=== PATIENT | male | born 1955 | race African-American/Black ===

== ENCOUNTER 2016-06-04 06:40 | Emergency (ER) | payer MEDICAID, OTHER ==
[~2016-06-04] VITALS: Ht 177.8 cm; Wt 71.1 kg
[2016-06-04] MEDS ORDERED: ATENOLOL 50 MG TABLET PO STA (06:46)
[2016-06-04] MEDS ORDERED: METOPROLOL TARTRATE 50 MG TABLET ONE (06:54)
[2016-06-04 07:29] LABS: BLOOD UREA NITROGEN 10 mg/dL (7-18)
[2016-06-04 07:34] LABS: IS PT STATUS REG ER OR PRE ER? YES
[2016-06-04 07:36] LABS: HEMOGLOBIN 13.9 g/dL (13.7-18.0)
[2016-06-04] MEDS ORDERED: LISINOPRIL 20 MG TABLET ONE (08:44)
[2016-06-04] MEDS ORDERED: LISINOPRIL 20 MG TABLET PO ONE (09:00)
[2016-06-04 09:26] VITALS: BP 152/98
== END 2016-06-04 10:07 | disposition home or self-care (01) ==
LOC: ED 06:46
DX: I10 Essential (primary) hypertension (principal); F17.200 Nicotine dependence, unspecified, uncomplicated
CPT/HCPCS: 36415; 70450; 71010; 80048; 82040; 83880; 84484; 85025; 93005

== ENCOUNTER 2016-09-09 19:22 | Inpatient (IN) | payer SELFPAY ==
[~2016-09-09] VITALS: Ht 177.8 cm; Wt 74.6 kg
[2016-09-09] MEDS ORDERED: SODIUM CHLORIDE 0.9% 1,000 ML IV ONE (20:36)
[2016-09-09] MEDS ORDERED: ONDANSETRON 2MG/ML, 2ML ONE (20:46)
[2016-09-09] MEDS ORDERED: MORPHINE SULFATE 4 MG/ML, 1ML ONE ×2 (20:46→21:32)
[2016-09-09] MEDS ORDERED: LABETALOL 5MG/ML, 20ML ONE (20:50)
[2016-09-09] MEDS ORDERED: BP MEDICATION (20:55)
[2016-09-09] MEDS: LABETALOL 5MG/ML, 20ML IVPush PRN ×4 (20:58→21:46)
[2016-09-09] MEDS ORDERED: ONDANSETRON 2MG/ML, 2ML IVPush ONE (21:00)
[2016-09-09] MEDS ORDERED: SODIUM CHLORIDE 0.9% 1,000ML IVBOLUS ONE (21:00)
[2016-09-09] MEDS ORDERED: MORPHINE SULFATE 4 MG/ML, 1ML IVPush PRN ×2 (21:00→22:00)
[2016-09-09] MEDS ORDERED: SODIUM CHLORIDE FLUSH 10ML SYR IVF ONE (21:00)
[2016-09-09 21:02] LABS: ASPARTATE AMINO TRANSFERASE 62 U/L (15-37); BLOOD UREA NITROGEN 19 mg/dL (7-18)
[2016-09-09] MEDS ORDERED: BENA40TA2 PO (21:20)
[2016-09-09] MEDS: NICOTINE 14MG/24 HR PATCH.TD24 TD SCH (22:00)
[2016-09-09] MEDS ORDERED: ONDANSETRON 2MG/ML, 2ML IVPush PRN ×2 (22:00)
[2016-09-09] MEDS ORDERED: DOCUSATE 100 MG CAPSULE PO PRN (22:00)
[2016-09-09] MEDS ORDERED: SODIUM CHLORIDE FLUSH 10ML SYR IVF PRN (22:00)
[2016-09-09] MEDS ORDERED: POLYETHYLENE GLYCOL 17 GM PACKET PO PRN (22:00)
[2016-09-09 22:30] VITALS: BP 179/114
[2016-09-09] MEDS: OXYcodone IR 5MG TABLET PO PRN (22:50)
[2016-09-09] MEDS: morphine SULFATE 10 MG/ML, 1ML IVPush PRN (22:51)
[2016-09-10] MEDS: morphine SULFATE 10 MG/ML, 1ML IVPush PRN ×2 (01:50→05:17)
[2016-09-10] MEDS: OXYcodone IR 5MG TABLET PO PRN ×5 (02:40→19:48)
[2016-09-10 04:00] VITALS: BP 144/88
[2016-09-10 04:57] LABS: BLOOD UREA NITROGEN 15 mg/dL (7-18)
[2016-09-10] MEDS: BENAZEPRIL 20 MG TABLET PO SCH (07:56)
[2016-09-10] MEDS: ACETAMINOPHEN 325 MG TABLET PO PRN ×2 (07:57→21:11)
[2016-09-10] MEDS: DILTIAZEM 120 MG CAP.ER.12H PO SCH ×2 (07:57→20:17)
[2016-09-10] MEDS: PANTOPRAZOLE 40 MG IV IVPush SCH (07:57)
[2016-09-10] MEDS: SENNA/DOCUSATE TABLET PO SCH (07:57)
[2016-09-10] MEDS: SODIUM CHLORIDE FLUSH 10ML SYR IVF SCH ×2 (07:57→20:17)
[2016-09-10] MEDS: HYDROmorphone 2 MG/ML, 1ML IVPush PRN ×5 (08:11→21:48)
[2016-09-10] MEDS: ENALAPRILAT 1.25 MG/ML, 2ML IV PRN ×2 (08:36→16:45)
[2016-09-10] MEDS: NICOTINE 14MG/24 HR PATCH.TD24 TD SCH (09:49)
[2016-09-10] MEDS: hydrALAzine 20 MG/ML, 1ML IV PRN ×2 (11:06→20:22)
[2016-09-10] MEDS: AMPICILLIN/SULBACTAM 3 GM in SODIUM CHLORIDE 0.9% 100 ML IV SCH ×2 (15:06→21:06)
[2016-09-11] MEDS: OXYcodone IR 5MG TABLET PO PRN ×3 (00:05→20:59)
[2016-09-11] MEDS: ENALAPRILAT 1.25 MG/ML, 2ML IV PRN ×2 (00:05→17:00)
[2016-09-11 04:00] VITALS: BP 162/98
[2016-09-11] MEDS: AMPICILLIN/SULBACTAM 3 GM in SODIUM CHLORIDE 0.9% 100 ML IV SCH ×3 (04:34→20:59)
[2016-09-11] MEDS: HYDROmorphone 2 MG/ML, 1ML IVPush PRN (06:06)
[2016-09-11] MEDS ORDERED: LIDOCAINE/PF 1%, 30ML ONE (07:43)
[2016-09-11] MEDS ORDERED: EPINEPHRINE 1 MG/ML, 1ML ONE (07:43)
[2016-09-11] MEDS ORDERED: OXYMETAZOLINE NASAL SPRAY 0.05%, 15ML ONE (07:43)
[2016-09-11] MEDS ORDERED: ALBUTEROL SULFATE 2.5 MG/3 ML NPPB PRN (08:00)
[2016-09-11] MEDS ORDERED: hydrALAzine 20 MG/ML, 1ML IV PRN (08:00)
[2016-09-11] MEDS ORDERED: LABETALOL 5MG/ML, 20ML IV PRN (08:00)
[2016-09-11] MEDS ORDERED: FENTANYL PF 100 MCG/2ML IV PRN (08:00)
[2016-09-11] MEDS ORDERED: EPHEDRINE 50 MG/ML, 1ML IVPush PRN (08:00)
[2016-09-11] MEDS ORDERED: OXYcodone 5 MG/5 ML ORAL.SOL UDC PO PRN (08:00)
[2016-09-11] MEDS ORDERED: HYDROmorphone 1 MG/ML, 1ML IV PRN (08:00)
[2016-09-11] MEDS ORDERED: MEPERIDINE/PF 25MG/0.5ML IVPush PRN (08:00)
[2016-09-11] MEDS ORDERED: METOPROLOL 1 MG/ML, 5ML IV PRN (08:00)
[2016-09-11] MEDS ORDERED: ACETAMINOPHEN 325 MG TABLET PO PRN ×2 (08:00→13:30)
[2016-09-11] MEDS ORDERED: ONDANSETRON 2MG/ML, 2ML IVPush PRN (08:00)
[2016-09-11] MEDS ORDERED: FENTANYL PF 250 MCG/5ML ONE (08:11)
[2016-09-11] MEDS ORDERED: NEOSTIGMINE 1 MG/ML, 10ML ONE (08:15)
[2016-09-11] MEDS ORDERED: GLYCOPYRROLATE 0.2MG/1ML ONE (08:15)
[2016-09-11] MEDS ORDERED: PROPOFOL 10 MG/ML, 20ML ONE (08:15)
[2016-09-11] MEDS ORDERED: LABETALOL 5MG/ML 40ML VIAL ONE (08:15)
[2016-09-11] MEDS ORDERED: ONDANSETRON 2MG/ML, 2ML ONE (08:15)
[2016-09-11] MEDS ORDERED: ROCURONIUM 10 MG/ML ONE (08:15)
[2016-09-11] MEDS ORDERED: LIDOCAINE 1%-EPI 1:100K, 30ML INFIL ONE (08:44)
[2016-09-11] MEDS ORDERED: MUPIROCIN OINT 2%, 22GM ONE (11:03)
[2016-09-11] MEDS ORDERED: OXYcodone 5 MG/5 ML ORAL.SOL UDC ONE (11:51)
[2016-09-11] MEDS ORDERED: hydrALAzine 20 MG/ML, 1ML ONE (11:53)
[2016-09-11] MEDS ORDERED: HYDROmorphone 1 MG/ML, 1ML ONE (12:19)
[2016-09-11] MEDS ORDERED: ONDANSETRON 2MG/ML, 2ML IVPush ONE (13:30)
[2016-09-11] MEDS: SODIUM CHLORIDE FLUSH 10ML SYR IVF SCH ×2 (13:46→21:00)
[2016-09-11] MEDS: PANTOPRAZOLE 40 MG IV IVPush SCH (13:46)
[2016-09-11] MEDS: SENNA/DOCUSATE TABLET PO SCH (13:47)
[2016-09-11] MEDS: BENAZEPRIL 20 MG TABLET PO SCH (13:48)
[2016-09-11] MEDS: DILTIAZEM 120 MG CAP.ER.12H PO SCH ×2 (13:48→20:59)
[2016-09-11] MEDS: NICOTINE 14MG/24 HR PATCH.TD24 TD SCH (13:49)
[2016-09-11] MEDS ORDERED: HYDROmorphone 1 MG/ML, 1ML IV ONE (14:30)
[2016-09-11] MEDS: LACTATED RINGERS 1,000 ML IV SCH (14:56)
[2016-09-11] MEDS: HYDROmorphone 1 MG/ML, 1ML IV PRN ×2 (19:27→23:24)
[2016-09-11] MEDS: LABETALOL 5MG/ML, 20ML IVPush PRN ×2 (19:27→23:19)
[2016-09-11 19:46] VITALS: BP 180/98
[2016-09-11] MEDS: MUPIROCIN OINT 2%, 22GM NAS SCH (20:33)
[2016-09-12 00:04] VITALS: BP 170/96
[2016-09-12] MEDS: OXYcodone IR 5MG TABLET PO PRN ×3 (00:48→10:47)
[2016-09-12] MEDS: ACETAMINOPHEN 325 MG TABLET PO PRN (01:04)
[2016-09-12] MEDS ORDERED: HYDROmorphone 2 MG/ML, 1ML ONE (04:30)
[2016-09-12 04:38] VITALS: BP 172/97
[2016-09-12] MEDS: HYDROmorphone 1 MG/ML, 1ML IV PRN (04:41)
[2016-09-12] MEDS: LABETALOL 5MG/ML, 20ML IVPush PRN (04:42)
[2016-09-12] MEDS: LACTATED RINGERS 1,000 ML IV SCH (04:42)
[2016-09-12 05:21] VITALS: BP 162/90
[2016-09-12 06:08] LABS: BLOOD UREA NITROGEN 14 mg/dL (7-18)
[2016-09-12 07:53] VITALS: BP 170/97
[2016-09-12] MEDS: MUPIROCIN OINT 2%, 22GM NAS SCH (08:00)
[2016-09-12] MEDS: PANTOPRAZOLE 40 MG IV IVPush SCH (08:00)
[2016-09-12] MEDS: SENNA/DOCUSATE TABLET PO SCH (09:00)
[2016-09-12] MEDS: BENAZEPRIL 20 MG TABLET PO SCH (10:18)
[2016-09-12] MEDS: DILTIAZEM 120 MG CAP.ER.12H PO SCH (10:18)
[2016-09-12] MEDS: NICOTINE 14MG/24 HR PATCH.TD24 TD SCH (10:19)
[2016-09-12] MEDS: SODIUM CHLORIDE FLUSH 10ML SYR IVF SCH (10:19)
[2016-09-12 13:14] VITALS: BP 121/73
[2016-09-12 13:20] VITALS: BP 126/79
[2016-09-12] MEDS ORDERED: DILT120C11 PO (15:43)
[2016-09-12] MEDS ORDERED: BENA40TA2 PO (15:43)
[2016-09-12] MEDS ORDERED: AMOX1TAB64 PO (15:43)
== END 2016-09-12 16:50 | disposition left against medical advice (07) | DRG 131 ==
LOC: ED 21:33 → SUATTDRO 21:42 → EDIP 22:22 → CCU 22:24 → 4NOR 09-11 13:00
PROVIDERS: ADMIT Family Medicine; ATTEND Family Medicine
PROC: 2W3FX1Z Immobilization of Left Hand using Splint (ICD-10-PCS; principal; 2016-09-09)
PROC: 0NSV04Z Reposition Left Mandible with Internal Fixation Device, Open Approach (ICD-10-PCS; 2016-09-11)
PROC: 0NST04Z Reposition Right Mandible with Internal Fixation Device, Open Approach (ICD-10-PCS; 2016-09-11)
PROC: 2W6 Placement, Anatomical Regions, Traction (ICD-10-PCS; 2016-09-11)
DX: S02.612A Fracture of condylar process of left mandible, initial encounter for closed fracture (principal); S06.5X0A Traumatic subdural hemorrhage without loss of consciousness, initial encounter; I16.9 Hypertensive crisis, unspecified; S02.611A Fracture of condylar process of right mandible, initial encounter for closed fracture; S01.511A Laceration without foreign body of lip, initial encounter; S01.512A Laceration without foreign body of oral cavity, initial encounter; I10 Essential (primary) hypertension; Z53.21 Procedure and treatment not carried out due to patient leaving prior to being seen by health care provider; S62.391A Other fracture of second metacarpal bone, left hand, initial encounter for closed fracture; Z72.0 Tobacco use; V19.9XXA Pedal cyclist (driver) (passenger) injured in unspecified traffic accident, initial encounter; Y93.55 Activity, bike riding; Y92.89 Other specified places as the place of occurrence of the external cause; Y99.8 Other external cause status
CPT/HCPCS: 36415; 70450; 70486; 71010; 80048; 80053; 85025; 85610; 85730; 87081; 93005; 96361; 96374; 96375; 96376; C1713; J0171; J0295; J1170; J2405; J2704; J2710; J3010; J3490; C9113; J0360; J2270; J7030; J7050; J7120

== ENCOUNTER 2016-09-19 20:09 | Inpatient (IN) | payer MEDICAID ==
[~2016-09-19] VITALS: Ht 177.8 cm; Wt 70.7 kg
[~2016-09-19 20:09] MED LIST: AMOX1TAB64 PO; BENA40TA2 PO; BP MEDICATION; DILT120C11 PO
[2016-09-19] MEDS ORDERED: SODIUM CHLORIDE 0.9% 1,000 ML IV ONE (20:35)
[2016-09-19] MEDS ORDERED: SODIUM CHLORIDE FLUSH 10ML SYR IVF ONE (21:00)
[2016-09-19] MEDS ORDERED: SODIUM CHLORIDE 0.9% 1,000ML IVBOLUS ONE (21:00)
[2016-09-19 21:11] LABS: BLOOD UREA NITROGEN 17 mg/dL (7-18)
[2016-09-19] MEDS ORDERED: ONDANSETRON 2MG/ML, 2ML ONE (21:21)
[2016-09-19] MEDS ORDERED: MORPHINE SULFATE 4 MG/ML, 1ML ONE ×2 (21:21→23:16)
[2016-09-19] MEDS ORDERED: OMNIPAQUE 350 MG/ML, 75ML BOTTLE ONE (21:27)
[2016-09-19] MEDS ORDERED: LISI40TA PO (21:27)
[2016-09-19] MEDS ORDERED: MORPHINE SULFATE 4 MG/ML, 1ML IVPush ONE (21:30)
[2016-09-19] MEDS ORDERED: ONDANSETRON 2MG/ML, 2ML IVPush ONE (21:30)
[2016-09-19] MEDS ORDERED: BENA40TA2 PO (21:32)
[2016-09-19] MEDS: MORPHINE SULFATE 4 MG/ML, 1ML IVPush ONE ×2 (22:30→23:17)
[2016-09-19] MEDS ORDERED: AMPICILLIN/SULBACTAM 3 GM in SODIUM CHLORIDE 0.9% 100 ML IV ONE (23:00)
[2016-09-20] VITALS (9 sets, daily range): BP systolic 139–190; BP diastolic 91–111
[2016-09-20] MEDS ORDERED: DOCUSATE 100 MG CAPSULE PO PRN (01:00)
[2016-09-20] MEDS ORDERED: TEMAZEPAM 15 MG CAPSULE PO PRN (01:00)
[2016-09-20] MEDS ORDERED: ONDANSETRON ODT 4 MG PO PRN (01:00)
[2016-09-20] MEDS: NICOTINE 7 MG/24 HR PATCH.TD24 TD SCH ×2 (01:00→21:04)
[2016-09-20] MEDS ORDERED: SODIUM CHLORIDE FLUSH 10ML SYR IVF PRN (01:00)
[2016-09-20] MEDS: morphine SULFATE 10 MG/ML, 1ML IVPush PRN ×7 (02:20→23:16)
[2016-09-20] MEDS: ENALAPRILAT 1.25 MG/ML, 2ML IVPush PRN ×3 (02:20→08:56)
[2016-09-20] MEDS: AMPICILLIN/SULBACTAM 3 GM in SODIUM CHLORIDE 0.9% 100 ML IV SCH ×3 (05:00→17:50)
[2016-09-20] MEDS: hydrALAzine 20 MG/ML, 1ML IV PRN (11:55)
[2016-09-20] MEDS ORDERED: KETOROLAC 30 MG/1 ML IM PRN (18:00)
[2016-09-20] MEDS ORDERED: KETOROLAC 30 MG/1 ML ONE (18:00)
[2016-09-20] MEDS: HYDROcodone/APAP 5/325 TABLET PO PRN (21:03)
[2016-09-21] MEDS: AMPICILLIN/SULBACTAM 3 GM in SODIUM CHLORIDE 0.9% 100 ML IV SCH ×4 (00:18→19:39)
[2016-09-21] MEDS: morphine SULFATE 10 MG/ML, 1ML IVPush PRN ×5 (02:41→20:00)
[2016-09-21 03:57] VITALS: BP 158/98
[2016-09-21 05:32] LABS: BLOOD UREA NITROGEN 10 mg/dL (7-18)
[2016-09-21 05:36] LABS: ASPARTATE AMINO TRANSFERASE 33 U/L (15-37)
[2016-09-21 08:00] VITALS: BP 173/107
[2016-09-21] MEDS: KETOROLAC 30 MG/1 ML IV PRN ×2 (09:15→22:08)
[2016-09-21] MEDS: BENAZEPRIL 20 MG TABLET PO SCH (09:16)
[2016-09-21] MEDS ORDERED: VANCOMYCIN 1,400 MG in SODIUM CHLORIDE 0.9% 250 ML IV SCH (10:00)
[2016-09-21] MEDS: VANCOMYCIN 1,400 MG in SODIUM CHLORIDE 0.9% 250 ML IV SCH ×2 (10:45→21:57)
[2016-09-21 10:49] VITALS: BP 170/102
[2016-09-21] MEDS: LABETALOL 5MG/ML, 20ML IVPush PRN (10:51)
[2016-09-21] MEDS ORDERED: LIDOCAINE/PF 1%, 30ML ONE (12:27)
[2016-09-21] MEDS ORDERED: EPINEPHRINE 1 MG/ML, 1ML ONE (12:27)
[2016-09-21] MEDS ORDERED: FENTANYL PF 250 MCG/5ML ONE (12:48)
[2016-09-21] MEDS ORDERED: hydrALAzine 20 MG/ML, 1ML ONE (14:11)
[2016-09-21] MEDS ORDERED: FENTANYL PF 100 MCG/2ML ONE (14:11)
[2016-09-21] MEDS ORDERED: ACETAMINOPHEN 650 MG/20.3 ML UDC ONE (14:11)
[2016-09-21] MEDS ORDERED: OXYcodone 5 MG/5 ML ORAL.SOL UDC ONE (14:11)
[2016-09-21] MEDS: FENTANYL PF 100 MCG/2ML IV PRN ×2 (14:14→14:25)
[2016-09-21] MEDS: hydrALAzine 20 MG/ML, 1ML IV PRN ×2 (14:25→14:44)
[2016-09-21] MEDS ORDERED: ALBUTEROL SULFATE 2.5 MG/3 ML NPPB PRN (14:30)
[2016-09-21] MEDS ORDERED: hydrALAzine 20 MG/ML, 1ML IV PRN (14:30)
[2016-09-21] MEDS ORDERED: PROMETHAZINE 25 MG/ML, 1ML IV PRN (14:30)
[2016-09-21] MEDS ORDERED: ACETAMINOPHEN 325 MG TABLET PO PRN (14:30)
[2016-09-21] MEDS ORDERED: LABETALOL 5MG/ML, 20ML IV PRN (14:30)
[2016-09-21] MEDS ORDERED: HYDROcodone/APAP 7.5-325MG/15ML UDC PO PRN (14:30)
[2016-09-21] MEDS ORDERED: ONDANSETRON 2MG/ML, 2ML IVPush PRN (14:30)
[2016-09-21] MEDS ORDERED: HYDROmorphone 1 MG/ML, 1ML ONE (14:36)
[2016-09-21] MEDS: HYDROmorphone 1 MG/ML, 1ML IV PRN ×2 (14:39→14:44)
[2016-09-21] MEDS ORDERED: OXYcodone 5 MG/5 ML ORAL.SOL UDC PO PRN (15:00)
[2016-09-21] MEDS ORDERED: METOPROLOL 1 MG/ML, 5ML ONE (15:57)
[2016-09-21] MEDS ORDERED: PROPOFOL 10 MG/ML, 20ML ONE (15:57)
[2016-09-21] MEDS ORDERED: SUCCINYLCHOLINE 20 MG/ML, 10ML ONE (15:57)
[2016-09-21] MEDS ORDERED: ESMOLOL 100 MG/10 ML ONE (15:57)
[2016-09-21] MEDS: HYDROcodone/APAP 5/325 TABLET PO PRN (17:52)
[2016-09-21 19:14] VITALS: BP 164/81
[2016-09-21] MEDS: NICOTINE 7 MG/24 HR PATCH.TD24 TD SCH (21:56)
[2016-09-21] MEDS: LACTOBACILLUS CHEW TABLET PO SCH (21:57)
[2016-09-22] VITALS (7 sets, daily range): BP systolic 153–171; BP diastolic 85–113
[2016-09-22] MEDS: morphine SULFATE 10 MG/ML, 1ML IVPush PRN ×4 (01:28→19:55)
[2016-09-22] MEDS: AMPICILLIN/SULBACTAM 3 GM in SODIUM CHLORIDE 0.9% 100 ML IV SCH ×4 (01:29→19:55)
[2016-09-22] MEDS: KETOROLAC 30 MG/1 ML IV PRN ×5 (04:12→23:31)
[2016-09-22 05:40] LABS: BLOOD UREA NITROGEN 7 mg/dL (7-18)
[2016-09-22] MEDS: ENOXAPARIN 40 MG/0.4 ML SQ SCH (08:30)
[2016-09-22] MEDS: BENAZEPRIL 20 MG TABLET PO SCH (08:30)
[2016-09-22] MEDS: LACTOBACILLUS CHEW TABLET PO SCH ×3 (08:30→19:55)
[2016-09-22] MEDS: VANCOMYCIN 1,400 MG in SODIUM CHLORIDE 0.9% 250 ML IV SCH ×2 (10:18→21:13)
[2016-09-22] MEDS: hydrALAzine 20 MG/ML, 1ML IV PRN (17:50)
[2016-09-22] MEDS: NICOTINE 7 MG/24 HR PATCH.TD24 TD SCH (21:13)
[2016-09-23] MEDS: AMPICILLIN/SULBACTAM 3 GM in SODIUM CHLORIDE 0.9% 100 ML IV SCH ×4 (02:08→20:50)
[2016-09-23 02:36] VITALS: BP 180/97
[2016-09-23] MEDS: ENALAPRILAT 1.25 MG/ML, 2ML IV PRN (02:46)
[2016-09-23 04:22] VITALS: BP 170/107
[2016-09-23 05:01] LABS: BLOOD UREA NITROGEN 8 mg/dL (7-18)
[2016-09-23 07:30] VITALS: BP_SYST 178; BP_SYST 180; BP_DIAS 110; BP_DIAS 121
[2016-09-23] MEDS: BENAZEPRIL 20 MG TABLET PO SCH (08:17)
[2016-09-23] MEDS: hydrALAzine 20 MG/ML, 1ML IV PRN ×2 (08:18→15:57)
[2016-09-23] MEDS: KETOROLAC 30 MG/1 ML IV PRN ×2 (08:18→20:52)
[2016-09-23] MEDS: ENOXAPARIN 40 MG/0.4 ML SQ SCH (08:18)
[2016-09-23] MEDS: LACTOBACILLUS CHEW TABLET PO SCH ×3 (08:18→20:50)
[2016-09-23] MEDS: VANCOMYCIN 1,400 MG in SODIUM CHLORIDE 0.9% 250 ML IV SCH ×2 (10:43→21:45)
[2016-09-23] MEDS: HYDROCHLOROTHIAZIDE 12.5 MG CAPSULE PO SCH ×2 (10:43→20:50)
[2016-09-23 15:43] VITALS: BP 172/118
[2016-09-23] MEDS: morphine SULFATE 10 MG/ML, 1ML IVPush PRN (15:57)
[2016-09-23 20:29] VITALS: BP 168/101
[2016-09-23] MEDS: NICOTINE 7 MG/24 HR PATCH.TD24 TD SCH (20:51)
[2016-09-24] MEDS: AMPICILLIN/SULBACTAM 3 GM in SODIUM CHLORIDE 0.9% 100 ML IV SCH ×4 (02:04→19:53)
[2016-09-24] MEDS: KETOROLAC 30 MG/1 ML IV PRN ×3 (03:19→22:21)
[2016-09-24 03:35] VITALS: BP 150/87
[2016-09-24 08:22] VITALS: BP 163/112
[2016-09-24] MEDS: BENAZEPRIL 20 MG TABLET PO SCH (08:24)
[2016-09-24] MEDS: ENOXAPARIN 40 MG/0.4 ML SQ SCH (08:24)
[2016-09-24] MEDS: HYDROCHLOROTHIAZIDE 12.5 MG CAPSULE PO SCH ×2 (08:24→19:53)
[2016-09-24] MEDS: LACTOBACILLUS CHEW TABLET PO SCH ×3 (08:24→19:53)
[2016-09-24] MEDS: LABETALOL 5MG/ML, 20ML IVPush PRN (10:07)
[2016-09-24] MEDS: VANCOMYCIN 1,400 MG in SODIUM CHLORIDE 0.9% 250 ML IV SCH ×2 (10:10→23:07)
[2016-09-24] MEDS: HYDROcodone/APAP 10/325 MG TABLET PO PRN ×2 (16:23→22:22)
[2016-09-24 17:03] VITALS: BP 165/110
[2016-09-24] MEDS: morphine SULFATE 10 MG/ML, 1ML IVPush PRN ×2 (19:52→22:01)
[2016-09-24 19:57] VITALS: BP 172/112
[2016-09-24 22:12] VITALS: BP 168/114
[2016-09-24] MEDS: NICOTINE 7 MG/24 HR PATCH.TD24 TD SCH (22:21)
[2016-09-24] MEDS: ENALAPRILAT 1.25 MG/ML, 2ML IV PRN (22:21)
[2016-09-24 23:10] VITALS: BP 153/87
[2016-09-25] MEDS: KETOROLAC 30 MG/1 ML IV PRN ×4 (04:34→23:30)
[2016-09-25] MEDS: AMPICILLIN/SULBACTAM 3 GM in SODIUM CHLORIDE 0.9% 100 ML IV SCH ×4 (04:35→21:42)
[2016-09-25 04:44] VITALS: BP 148/94
[2016-09-25 06:06] LABS: BLOOD UREA NITROGEN 12 mg/dL (7-18)
[2016-09-25] MEDS: LACTOBACILLUS CHEW TABLET PO SCH ×3 (09:30→21:42)
[2016-09-25] MEDS: ENOXAPARIN 40 MG/0.4 ML SQ SCH (09:30)
[2016-09-25] MEDS: BENAZEPRIL 20 MG TABLET PO SCH (09:31)
[2016-09-25] MEDS: HYDROCHLOROTHIAZIDE 12.5 MG CAPSULE PO SCH ×2 (09:31→21:43)
[2016-09-25 09:34] VITALS: BP 155/95
[2016-09-25] MEDS: morphine SULFATE 10 MG/ML, 1ML IVPush PRN ×3 (10:41→20:21)
[2016-09-25] MEDS: VANCOMYCIN 1,400 MG in SODIUM CHLORIDE 0.9% 250 ML IV SCH ×2 (11:43→23:30)
[2016-09-25 14:41] VITALS: BP 167/103
[2016-09-25] MEDS: LABETALOL 5MG/ML, 20ML IVPush PRN (15:15)
[2016-09-25 17:14] VITALS: BP 177/106
[2016-09-25] MEDS: ENALAPRILAT 1.25 MG/ML, 2ML IV PRN (17:35)
[2016-09-25 18:52] VITALS: BP 175/102
[2016-09-25] MEDS: hydrALAzine 20 MG/ML, 1ML IV PRN (18:57)
[2016-09-25 20:05] VITALS: BP 149/87
[2016-09-25] MEDS: HYDROcodone/APAP 10/325 MG TABLET PO PRN (21:42)
[2016-09-25] MEDS: NICOTINE 7 MG/24 HR PATCH.TD24 TD SCH (21:42)
[2016-09-26] MEDS: AMPICILLIN/SULBACTAM 3 GM in SODIUM CHLORIDE 0.9% 100 ML IV SCH ×4 (03:19→22:40)
[2016-09-26] MEDS: HYDROcodone/APAP 10/325 MG TABLET PO PRN ×5 (03:19→21:28)
[2016-09-26] MEDS: morphine SULFATE 10 MG/ML, 1ML IVPush PRN ×3 (03:32→19:50)
[2016-09-26 06:33] LABS: ASPARTATE AMINO TRANSFERASE 24 U/L (15-37); BLOOD UREA NITROGEN 12 mg/dL (7-18); C-REACTIVE PROTEIN, QUANT 0.09 mg/dL (0.02-0.49)
[2016-09-26 08:15] VITALS: BP 171/117
[2016-09-26] MEDS: ENOXAPARIN 40 MG/0.4 ML SQ SCH (08:31)
[2016-09-26] MEDS: HYDROCHLOROTHIAZIDE 12.5 MG CAPSULE PO SCH ×2 (08:31→21:28)
[2016-09-26] MEDS: BENAZEPRIL 20 MG TABLET PO SCH (08:31)
[2016-09-26] MEDS: LACTOBACILLUS CHEW TABLET PO SCH ×3 (08:31→21:28)
[2016-09-26] MEDS: hydrALAzine 20 MG/ML, 1ML IV PRN (08:32)
[2016-09-26 10:15] VITALS: BP 148/92
[2016-09-26] MEDS: VANCOMYCIN 1,400 MG in SODIUM CHLORIDE 0.9% 250 ML IV SCH ×2 (11:04→23:25)
[2016-09-26 14:00] VITALS: BP 155/95
[2016-09-26 21:09] VITALS: BP 183/114
[2016-09-26] MEDS: LABETALOL 5MG/ML, 20ML IVPush PRN (21:29)
[2016-09-27] MEDS: morphine SULFATE 10 MG/ML, 1ML IVPush PRN ×5 (01:16→21:10)
[2016-09-27] MEDS: HYDROcodone/APAP 10/325 MG TABLET PO PRN ×6 (01:16→23:29)
[2016-09-27 03:20] VITALS: BP 156/94
[2016-09-27] MEDS: AMPICILLIN/SULBACTAM 3 GM in SODIUM CHLORIDE 0.9% 100 ML IV SCH ×3 (04:47→17:49)
[2016-09-27 06:14] LABS: BLOOD UREA NITROGEN 9 mg/dL (7-18)
[2016-09-27 08:39] VITALS: BP 154/98
[2016-09-27] MEDS: BENAZEPRIL 20 MG TABLET PO SCH (08:43)
[2016-09-27] MEDS: HYDROCHLOROTHIAZIDE 12.5 MG CAPSULE PO SCH ×2 (08:43→19:44)
[2016-09-27] MEDS: LACTOBACILLUS CHEW TABLET PO SCH ×3 (08:43→19:44)
[2016-09-27] MEDS: NICOTINE 7 MG/24 HR PATCH.TD24 TD SCH (08:43)
[2016-09-27] MEDS: ENOXAPARIN 40 MG/0.4 ML SQ SCH (10:40)
[2016-09-27] MEDS: VANCOMYCIN 1,400 MG in SODIUM CHLORIDE 0.9% 250 ML IV SCH ×2 (11:38→23:19)
[2016-09-27 14:29] VITALS: BP 126/77
[2016-09-27 14:51] VITALS: BP 159/98
[2016-09-27 20:57] VITALS: BP_SYST 152; BP_SYST 175; BP_DIAS 97; BP_DIAS 98
[2016-09-28] MEDS: AMPICILLIN/SULBACTAM 3 GM in SODIUM CHLORIDE 0.9% 100 ML IV SCH ×4 (01:45→20:00)
[2016-09-28 03:53] VITALS: BP_SYST 160; BP_SYST 166; BP_DIAS 105; BP_DIAS 112
[2016-09-28] MEDS: morphine SULFATE 10 MG/ML, 1ML IVPush PRN ×5 (03:57→22:51)
[2016-09-28 04:51] LABS: BLOOD UREA NITROGEN 11 mg/dL (7-18)
[2016-09-28] MEDS: HYDROcodone/APAP 10/325 MG TABLET PO PRN ×4 (06:09→20:00)
[2016-09-28 07:47] VITALS: BP 159/98
[2016-09-28] MEDS: NICOTINE 7 MG/24 HR PATCH.TD24 TD SCH (07:50)
[2016-09-28] MEDS: LACTOBACILLUS CHEW TABLET PO SCH ×3 (07:50→20:00)
[2016-09-28] MEDS: HYDROCHLOROTHIAZIDE 12.5 MG CAPSULE PO SCH ×2 (07:50→20:00)
[2016-09-28] MEDS: BENAZEPRIL 20 MG TABLET PO SCH (07:50)
[2016-09-28] MEDS: ENOXAPARIN 40 MG/0.4 ML SQ SCH (10:33)
[2016-09-28] MEDS: VANCOMYCIN 1,400 MG in SODIUM CHLORIDE 0.9% 250 ML IV SCH ×2 (11:07→22:51)
[2016-09-28 15:33] VITALS: BP 158/99
[2016-09-28 20:29] VITALS: BP 174/106
[2016-09-28 22:56] VITALS: BP 172/97
[2016-09-29] MEDS: HYDROcodone/APAP 10/325 MG TABLET PO PRN ×5 (00:47→20:18)
[2016-09-29 00:49] VITALS: BP 120/70
[2016-09-29] MEDS: AMPICILLIN/SULBACTAM 3 GM in SODIUM CHLORIDE 0.9% 100 ML IV SCH ×4 (01:47→20:06)
[2016-09-29 02:00] VITALS: BP 152/97
[2016-09-29 08:01] VITALS: BP 158/104
[2016-09-29] MEDS: NICOTINE 7 MG/24 HR PATCH.TD24 TD SCH (08:06)
[2016-09-29] MEDS: LACTOBACILLUS CHEW TABLET PO SCH ×3 (08:06→20:07)
[2016-09-29] MEDS: BENAZEPRIL 20 MG TABLET PO SCH (08:07)
[2016-09-29] MEDS: ENOXAPARIN 40 MG/0.4 ML SQ SCH (08:07)
[2016-09-29] MEDS: HYDROCHLOROTHIAZIDE 12.5 MG CAPSULE PO SCH ×2 (08:07→20:07)
[2016-09-29] MEDS: morphine SULFATE 10 MG/ML, 1ML IVPush PRN ×4 (08:17→22:57)
[2016-09-29] MEDS: VANCOMYCIN 1,400 MG in SODIUM CHLORIDE 0.9% 250 ML IV SCH ×2 (11:11→22:57)
[2016-09-29 13:33] VITALS: BP 161/104
[2016-09-29 18:42] VITALS: BP 165/114
[2016-09-30 01:55] VITALS: BP 150/105
[2016-09-30] MEDS: AMPICILLIN/SULBACTAM 3 GM in SODIUM CHLORIDE 0.9% 100 ML IV SCH ×3 (02:03→14:27)
[2016-09-30] MEDS: HYDROcodone/APAP 10/325 MG TABLET PO PRN ×5 (02:03→19:09)
[2016-09-30] MEDS: morphine SULFATE 10 MG/ML, 1ML IVPush PRN ×5 (02:04→19:09)
[2016-09-30 07:13] VITALS: BP_SYST 142; BP_SYST 155; BP_DIAS 103; BP_DIAS 95
[2016-09-30] MEDS: NICOTINE 7 MG/24 HR PATCH.TD24 TD SCH (08:13)
[2016-09-30] MEDS: LACTOBACILLUS CHEW TABLET PO SCH ×2 (08:13→17:09)
[2016-09-30] MEDS: BENAZEPRIL 20 MG TABLET PO SCH (08:14)
[2016-09-30] MEDS: HYDROCHLOROTHIAZIDE 12.5 MG CAPSULE PO SCH (08:15)
[2016-09-30] MEDS: ENOXAPARIN 40 MG/0.4 ML SQ SCH (08:15)
[2016-09-30] MEDS: VANCOMYCIN 1,400 MG in SODIUM CHLORIDE 0.9% 250 ML IV SCH (10:38)
[2016-09-30 14:03] VITALS: BP 148/96
== END 2016-09-30 19:45 | disposition short-term general hospital (02) | DRG 856 ==
LOC: ED 23:28 → EDIP 09-20 00:46 → 4NOR 09-20 01:12
PROVIDERS: ADMIT Family Medicine; ATTEND Hospitalist
PROC: 0J910ZZ Drainage of Face Subcutaneous Tissue and Fascia, Open Approach (ICD-10-PCS; principal; 2016-09-21 13:30)
DX: T81.4XXA Infection following a procedure, initial encounter (principal); E43 Unspecified severe protein-calorie malnutrition; T81.31XA Disruption of external operation (surgical) wound, not elsewhere classified, initial encounter; L03.211 Cellulitis of face; L02.01 Cutaneous abscess of face; E87.1 Hypo-osmolality and hyponatremia; M86.9 Osteomyelitis, unspecified; S02.609A Fracture of mandible, unspecified, initial encounter for closed fracture; D75.89 Other specified diseases of blood and blood-forming organs; D63.8 Anemia in other chronic diseases classified elsewhere; I10 Essential (primary) hypertension; B95.62 Methicillin resistant Staphylococcus aureus infection as the cause of diseases classified elsewhere; E11.69 Type 2 diabetes mellitus with other specified complication; I11.9 Hypertensive heart disease without heart failure; I16.0 Hypertensive urgency; M27.2 Inflammatory conditions of jaws; D47.3 Essential (hemorrhagic) thrombocythemia; Z91.19 Patient's noncompliance with other medical treatment and regimen; Z86.14 Personal history of Methicillin resistant Staphylococcus aureus infection; Z68.22 Body mass index [BMI] 22.0-22.9, adult
CPT/HCPCS: 36415; 70487; 80048; 80053; 80202; 82040; 82962; 83605; 83735; 84100; 84145; 85025; 85651; 86140; 87040; 87070; 87075; 87077; 87081; 87186; 87205; 96361; 96365; 96375; 96376; J0171; J0295; J1170; J1650; J1885; J2405; J2704; J3010; J3370; J3490; Q9967; J0330; J0360; J2270; J7030; J7050

== ENCOUNTER → 2018-05-03 | Outpatient (CLI) | payer MEDICAID, MEDICARE ==
[~2018-05-03] MED LIST changes: -BENA40TA2 PO; +BENA40TA3 PO; +LISI40TA PO
== END | disposition home or self-care (01) ==
LOC: CFH 15:41
PROVIDERS: ATTEND Physician Assistant Surgical
DX: S46.011A Strain of muscle(s) and tendon(s) of the rotator cuff of right shoulder, initial encounter (principal); M89.311 Hypertrophy of bone, right shoulder; M94.8X1 Other specified disorders of cartilage, shoulder; X58.XXXA Exposure to other specified factors, initial encounter; Y93.89 Activity, other specified; Y92.89 Other specified places as the place of occurrence of the external cause; Y99.8 Other external cause status

== ENCOUNTER 2019-08-23 20:07 | Emergency (ER) | payer MEDICARE ==
[~2019-08-23] VITALS: Ht 180.3 cm; Wt 72.3 kg
[2019-08-23 20:09] VITALS: BP 152/91
[2019-08-23] MEDS ORDERED: MICROFIBRILLAR COLLAGEN 1 GM TP ONE ×2 (20:24→20:30)
== END 2019-08-23 20:42 | disposition home or self-care (01) ==
LOC: ED 20:22
DX: S81.811A Laceration without foreign body, right lower leg, initial encounter (principal); I10 Essential (primary) hypertension; X58.XXXA Exposure to other specified factors, initial encounter; Y93.89 Activity, other specified; Y92.89 Other specified places as the place of occurrence of the external cause; Y99.8 Other external cause status
CPT/HCPCS: 99281